=== PATIENT | male | born 1945 | race Caucasian/White ===

== ENCOUNTER 2017-02-09 09:46 | Emergency (ER) | payer OTHER, MEDICARE ==
--- NOTE | 2017-02-09 10:06 | CPEKG ---
Heart Rate: 48 RR Interval: 1250 P-R Interval: 148 QRSD Interval: 90 QT Interval: 420 QTC Interval: 376 P Garrard: 71 QRS Garrard: 53 T Wave Garrard: 54 EKG Severity - OTHERWISE NORMAL ECG - EKG Impression: SINUS BRADYCARDIA EKG Impression: ATRIAL PREMATURE COMPLEX Electronically Signed By: Essie Mane 09-Feb-2017 14:55:42
--- NOTE | 2017-02-09 10:16 | EDPHY ---
H & P Time Seen by Provider: 02/09/17 10:04 HPI/ROS: CHIEF COMPLAINT: Irregular heartbeat HISTORY OF PRESENT ILLNESS: This patient is a 71 year old male with history of atrial fibrillation complaining of irregular heartbeat onset Wednesday morning, 02/05/17. He is prescribed Pradaxa in case he notes he is in atrial fibrillation, so he began taking this medication Wednesday. He denies other recent changes in medications. He endorses recent stress, but is generally eating and drinking well. He has not eaten yet today, because he was concerned for the possibility of cardioversion. No chest pain, shortness of breath, nausea, headache, or other associated symptoms. REVIEW OF SYSTEMS: Constitutional: No fever, no chills Eyes: No visual changes ENT: No sore throat Respiratory: No cough, no shortness of breath Cardiac: No chest pain Gastrointestinal: No nausea, no vomiting, no abdominal pain Genitourinary: No hematuria, no dysuria Musculoskeletal: No leg pain or swelling Skin: No rash Neurological: No headache, no numbness, no weakness Psychiatric: No depression Past Medical/Surgical History: 1. Atrial fibrillation 2. Pre diabetes mellitus 3. Hernia repair 4. Appendectomy Social History: . Lives in [place]. Smoking Status: Never smoked Physical Exam: General Appearance: Alert, no distress Eyes: Pupils equal and round, no conjunctival pallor or injection ENT, Mouth: Mucous membranes moist Neck: Normal inspection Respiratory: Lungs are clear to auscultation Cardiovascular: Regular rate. Occasional premature beat. Gastrointestinal: Abdomen is soft and non- tender Neurological: A&O, nonfocal, normal gait Skin: Warm and dry, no rash Extremities: Nontender, no pedal edema Psychiatric: Mood and affect normal Constitutional: Initial Vital Signs Temperature (C) 36.4 C 02/09/17 09:49 Heart Rate 56 L 02/09/17 09:49 Respiratory Rate 17 02/09/17 09:49 Blood Pressure 131/79 H 02/09/17 09:49 O2 Sat (%) 94 02/09/17 09:49 O2 Delivery Mode Room Air Allergies/Adverse Reactions: No Known Allergies Allergy (Verified 02/09/17 09:48) Home Medications: Medication Instructions Recorded Aspirin [Aspirin 81mg (*)] 81 mg PO HS 05/06/15 Atenolol [Tenormin 25 mg (*)] 25 mg PO BID@19,21 05/06/15 Cholecalciferol Vit D3 [Vitamin D3 1,000 units PO BID 05/06/15 (*)] Diazepam [Valium 5 MG (*)] 5 mg PO DAILY PRN 05/06/15 Herbals/Supplements -Info Only 1 ea PO DAILY 05/06/15 [place]-3 Fatty Acids [Fish Oil 1000 1,000 mg PO BID 05/06/15 mg (*)] SIMVASTATIN 10 mg PO HS 05/06/15 Pradaxa 02/09/17 Medical Decision Making - Diagnostics EKG Interpretation: EKG interpreted by me reveals sinus bradycardia, rate 48, atrial premature complexes. Interpretation: atrial premature complexes. ED Course/Re-evaluation: This patient is a 71 year old male with history of atrial fibrillation presenting with four day history of irregular heartbeat. EKG reveals premature atrial contractions. Plan to check electrolyte levels. Labs unremarkable. Reassessed patient. Plan to discharge home in good condition. 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 Pollock, this week to discuss his PACs and medication regimen. The patient is comfortable with this plan. Differential Diagnosis: The differential for the patient's irregular heartbeat included but was not limited to sinus tachycardia, atrial fibrillation, premature atrial contractions , premature ventricular contractions, or ventricular tachycardia. - Data Points Laboratory Results: Laboratory Results 02/09/17 10:15 02/09/17 10:15 02/09/17 02/09/17 10:15 10:15 WBC 5.15 10^3/uL 10^3/uL (3.80-9.50) RBC 4.95 10^6/uL 10^6/uL (4.40-6.38) Hgb 17.0 g/dL g/dL (13.7-17.5) Hct 48.5 % % (40.0-51.0) MCV 98.0 fL fL (81.5-99.8) MCH 34.3 pg H pg (27.9-34.1) MCHC 35.1 g/dL g/dL (32.4-36.7) RDW 12.0 % % (11.5-15.2) Plt Count 164 10^3/uL 10^3/uL (150-400) MPV 11.5 fL fL (8.7-11.7) Neut % (Auto) 51.3 % % (39.3-74.2) Lymph % (Auto) 31.8 % % (15.0-45.0) [place] % (Auto) 12.2 % % (4.5-13.0) Eos % (Auto) 3.9 % % (0.6-7.6) Baso % (Auto) 0.6 % % (0.3-1.7) Nucleat RBC Rel Count 0.0 % % (0.0-0.2) Absolute Neuts (auto) 2.64 10^3/uL 10^3/uL (1.70-6.50) Absolute Lymphs (auto) 1.64 10^3/uL 10^3/uL (1.00-3.00) Absolute Monos (auto) 0.63 10^3/uL 10^3/uL (0.30-0.80) Absolute Eos (auto) 0.20 10^3/uL 10^3/uL (0.03-0.40) Absolute Basos (auto) 0.03 10^3/uL 10^3/uL (0.02-0.10) Absolute Nucleated RBC 0.00 10^3/uL 10^3/uL (0-0.01) Immature Gran % 0.2 % % (0.0-1.1) Immature Gran # 0.01 10^3/uL 10^3/uL (0.00-0.10) Sodium 142 mEq/L mEq/L (134-144) Potassium 4.2 mEq/L mEq/L (3.5-5.2) Chloride 109 mEq/L mEq/L (97-110) Carbon Dioxide 22 mEq/l mEq/l (22-31) Anion Gap 11 mEq/L mEq/L (8-16) BUN 22 mg/dL mg/dL (7-23) Creatinine 1.1 mg/dL mg/dL (0.7-1.3) Estimated GFR > 60 Glucose 108 mg/dL H mg/dL (70-100) Calcium 9.8 mg/dL mg/dL (8.5-10.4) Departure - Departure Disposition: Home, Routine, Self-Care Clinical Impression: Premature atrial beat Condition: Good Instructions: Premature Atrial Contractions (ED) Additional Instructions: 1. Follow up with Dr. Pollock in the next week to further evaluate your premature atrial contractions. 2. Return to the Emergency Department if you develop dizziness, chest pain, shortness of breath, or any other concerns . Referrals: Veronika Leach MD [Primary Care Provider] - As per Instructions Eamon Pollock MD [Medical Doctor] - As per Instructions Report Scribed for: Essie Mane Report Scribed by: Jennifer Solis Date of Report: 02/09/17 Time of Report: 10:13 Physician Review and Approval Statement: 02/09/17 10:13 Portions of this note were transcribed by a medical researcher. I personally performed a history, physical exam, medical decision making, and confirmed accuracy of information the transcribed note.
[2017-02-09 10:23] LABS: % IMMATURE GRANULYOCYTES 0.2 % (0.0-1.1); ABSOLUTE IMMATURE GRANULOCYTES 0.01 10^3/uL (0.00-0.10); ADD DIFF? NO; ADD MORPH? NO; ADD SCAN? NO; ATYPICAL LYMPHOCYTE FLAG 40 (0-99); FRAGMENT RBC FLAG 0 (0-99); HEMATOCRIT 48.5 % (40.0-51.0); LEFT SHIFT FLG 0 (0-99); LIPEMIA HEMOLYSIS FLAG 90 (0-99); MEAN CELL HEMOGLOBIN 34.3 pg (27.9-34.1); MEAN CELL HEMOGLOBIN CONCENTR. 35.1 g/dL (32.4-36.7); MEAN PLATELET VOLUME 11.5 fL (8.7-11.7); PLATELET CLUMPS FLAG 30 (0-99); PLATELET COUNT 164 10^3/uL (150-400); RED BLOOD CELL COUNT 4.95 10^6/uL (4.40-6.38)
[2017-02-09 10:38] LABS: ANION GAP 11 mEq/L (8-16); CALCIUM 9.8 mg/dL (8.5-10.4); CARBON DIOXIDE 22 mEq/l (22-31); CHLORIDE 109 mEq/L (97-110); CREATININE 1.1 mg/dL (0.7-1.3); GLOMERULAR FILTRATION RATE > 60; GLUCOSE 108 mg/dL (70-100); POTASSIUM 4.2 mEq/L (3.5-5.2); SODIUM 142 mEq/L (134-144)
[2017-02-09 11:10] VITALS: BP 107/68; PULSE 43; RESP 16; TEMP 97.9; O2SAT 92
== END 2017-02-09 11:09 | disposition home or self-care (01) ==
DX: I49.1 Atrial premature depolarization (principal); Z79.82 Long term (current) use of aspirin

== ENCOUNTER → 2017-04-23 | Outpatient (CLI) | payer OTHER, MEDICARE | LOC: FIMAGING 15:45 | PROVIDERS: ATTEND Internal Medicine | DX: R91.1 Solitary pulmonary nodule (principal); I25.10 Atherosclerotic heart disease of native coronary artery without angina pectoris ==

== ENCOUNTER → 2017-11-30 | Outpatient (CLI) | payer OTHER, MEDICARE | LOC: BHFA 13:45 | PROVIDERS: ATTEND Internal Medicine | DX: Z86.79 Personal history of other diseases of the circulatory system (principal); Z79.899 Other long term (current) drug therapy ==

== ENCOUNTER 2018-04-29 19:25 | Emergency (ER) | payer OTHER, MEDICARE ==
--- NOTE | 2018-04-29 19:48 | EDPHY ---
H & P Time Seen by Provider: 04/29/18 19:47 HPI/ROS: Chief complaint. Fluctuating blood pressure HPI. 72-year-old male presents with concerns about blood pressure. He felt somewhat lightheaded this afternoon and so took his blood pressure thinking it would be low. It was somewhat elevated. He is taking his blood pressure multiple times to the afternoon. The highest reading he had recorded was 159/ 83. He had no chest discomfort or shortness of breath. He does have a history of occasional AFib. He uses aspirin as a blood thinner. He has mild hypertension and uses bisoprolol for blood pressure control. He has been using his medication. Patient is concerned that his blood pressure seems to be going up and down as the numbers or different each time he takes his blood pressure. ROS 10 systems were reviewed and negative with the exception of the elements mentioned in the history of present illness Past Medical/Surgical History: Atrial fibrillation, appendectomy, hypertension, dyslipidemia Social History: , nonsmoker, no alcohol Smoking Status: Never smoked Physical Exam: General Appearance: Alert well-developed male mild distress vital signs are stable. Current blood pressure 137/68 Eyes: Pupils equal and round no pallor or injection. ENT, Mouth: Mucous membranes are moist. Respiratory: There are no retractions, lungs are clear to auscultation. Cardiovascular: Regular rate and rhythm. Gastrointestinal: Abdomen is soft and nontender, no masses, bowel sounds normal. Neurological: Awake and alert, sensory and motor exams grossly normal. Skin: Warm and dry, no rashes. Musculoskeletal: Neck is supple nontender. Extremities symmetrical, full range of motion. Psychiatric: Patient is oriented X 3, there is no agitation. Constitutional: Initial Vital Signs Temperature (C) 36.4 C 04/29/18 19:31 Heart Rate 61 04/29/18 19:31 Respiratory Rate 16 04/29/18 19:31 Blood Pressure 137/68 H 04/29/18 19:31 O2 Sat (%) 96 04/29/18 19:31 O2 Delivery Mode Room Air Allergies/Adverse Reactions: No Known Allergies Allergy (Verified 04/29/18 19:35) Home Medications: Medication Instructions Recorded Aspirin [Aspirin 81mg (*)] 81 mg PO HS 05/06/15 Diazepam [Valium 5 MG (*)] 5 mg PO DAILY PRN 05/06/15 SIMVASTATIN 10 mg PO HS 05/06/15 Medical Decision Making - Diagnostics EKG Interpretation: EKG interpreted by me shows normal sinus rhythm normal interval and axis. QRS is normal there is no significant ST elevation or depression. There is 1 Pac. Rate is 52 Procedures: IV normal saline, monitor ED Course/Re-evaluation: Re-evaluation at 9:15 a.m.. Patient and I discussed EKG and laboratory evaluation. We discussed treatment plan including criteria for return and importance of follow-up and further evaluation. He expresses understanding and agreement Differential Diagnosis: Mild blood pressure variation with normal workup. I considered hypertensive crisis and end-organ involvement - Data Points Laboratory Results: Laboratory Results 04/29/18 20:20 04/29/18 20:20 04/29/18 04/29/18 04/29/18 20:35 20:20 20:20 WBC 5.69 10^3/uL 10^3/uL (3.80-9.50) RBC 4.63 10^6/uL 10^6/uL (4.40-6.38) Hgb 15.9 g/dL g/dL (13.7-17.5) Hct 45.4 % % (40.0-51.0) MCV 98.1 fL fL (81.5-99.8) MCH 34.3 pg H pg (27.9-34.1) MCHC 35.0 g/dL g/dL (32.4-36.7) RDW 12.1 % % (11.5-15.2) Plt Count 164 10^3/uL 10^3/uL (150-400) MPV 10.9 fL fL (8.7-11.7) Neut % (Auto) 59.3 % % (39.3-74.2) Lymph % (Auto) 26.5 % % (15.0-45.0) [place] % (Auto) 11.1 % % (4.5-13.0) Eos % (Auto) 2.5 % % (0.6-7.6) Baso % (Auto) 0.4 % % (0.3-1.7) Nucleat RBC Rel Count 0.0 % % (0.0-0.2) Absolute Neuts (auto) 3.38 10^3/uL 10^3/uL (1.70-6.50) Absolute Lymphs (auto) 1.51 10^3/uL 10^3/uL (1.00-3.00) Absolute Monos (auto) 0.63 10^3/uL 10^3/uL (0.30-0.80) Absolute Eos (auto) 0.14 10^3/uL 10^3/uL (0.03-0.40) Absolute Basos (auto) 0.02 10^3/uL 10^3/uL (0.02-0.10) Absolute Nucleated RBC 0.00 10^3/uL 10^3/uL (0-0.01) Immature Gran % 0.2 % % (0.0-1.1) Immature Gran # 0.01 10^3/uL 10^3/uL (0.00-0.10) Sodium 138 mEq/L mEq/L (135-145) Potassium 4.2 mEq/L mEq/L (3.3-5.0) Chloride 106 mEq/L mEq/L (97-110) Carbon Dioxide 23 mEq/l mEq/l (22-31) Anion Gap 9 mEq/L mEq/L (8-16) BUN 28 mg/dL H mg/dL (7-23) Creatinine 0.9 mg/dL mg/dL (0.7-1.3) Estimated GFR > 60 Glucose 103 mg/dL H mg/dL (70-100) Calcium 9.4 mg/dL mg/dL (8.5-10.4) POC Troponin I 0.01 ng/mL ng/mL (0.00-0.08) Point of Care Test Results: Chemistry 04/29/18 20:35 POC Troponin I 0.01 ng/mL ng/mL (0.00-0.08) Departure - Departure Disposition: Home, Routine, Self-Care Clinical Impression: Hypertension Qualifiers: Hypertension type: essential hypertension Qualified Code(s): I10 - Essential ( primary) hypertension Condition: Good Instructions: Hypertension (ED) Additional Instructions: Continue regular medications. Return for worsening symptoms including lightheadedness, chest discomfort, trouble breathing. Follow-up with Dr. Carr for further discussion of blood pressure and possible blood pressure medication modification Referrals: Veronika Leach MD [Primary Care Provider] - 2-3 days, call for appt.
[2018-04-29 20:35] VITALS: BP 139/86
[2018-04-29 20:35] LABS: PLATELET COUNT 164 10^3/uL (150-400)
--- NOTE | 2018-04-29 21:33 | CPEKG ---
Test Reason : OPEN Blood Pressure : / mmHG Vent. Rate : 052 BPM Atrial Rate : 053 BPM P-R Int : 142 ms QRS Dur : 082 ms QT Int : 415 ms P-R-T Axes : 058 047 038 degrees QTc Int : 386 ms Sinus rhythm Atrial premature complex Abnormal R-wave progression, early transition Confirmed by Mg Bailey ([id number]) on 04/29/2018 9:32:41 PM Referred By: Confirmed By:Mg Baliey
== END 2018-04-29 21:29 | disposition home or self-care (01) ==
DX: I10 Essential (primary) hypertension (principal)
CPT/HCPCS: 84484-PO

== ENCOUNTER 2018-08-30 14:35 | Emergency (ER) | payer OTHER, MEDICARE ==
[2018-08-30] MEDS ORDERED: ONDANSETRON 4 MG/2 ML VIAL IVP ONE (15:49)
[2018-08-30] MEDS ORDERED: NS 1,000 ML IV ONE (15:49)
--- NOTE | 2018-08-30 15:51 | EDPHY ---
H & P Stated Complaint: irregular HR hx of afib Time Seen by Provider: 08/30/18 15:36 HPI/ROS: CHIEF COMPLAINT: Vomiting, recurrent atrial fibrillation after taking narcotic medication for dental pain HISTORY OF PRESENT ILLNESS: The patient presents to the ED after he has developed intractable vomiting after taking [place] earlier this morning. The patient is taking the medication for dental pain following a recent procedure. The patient has a history of paroxysmal atrial fibrillation and also went back into atrial fibrillation. The patient denies any acute chest pain. He denies any melena. He is not anticoagulated currently. The patient denies any fever, cough or congestion. The patient denies any additional acute complaints. REVIEW OF SYSTEMS: A comprehensive 10 point review of systems is otherwise negative aside from elements mentioned in the history of present illness. Source: Patient Exam Limitations: No limitations - Personal History Current Tetanus/Diphtheria Vaccine: Yes Current Tetanus Diphtheria and Acellular Pertussis (TDAP): Yes Tetanus Vaccine Date: < 10 years - Medical/Surgical History Hx Asthma: No Hx Chronic Respiratory Disease: No Hx Diabetes: No Hx Cardiac Disease: Yes Hx Renal Disease: No Hx Cirrhosis: No Hx Alcoholism: No Hx HIV/AIDS: No Hx Splenectomy or Spleen Trauma: No Other PMH: Afib, pre DM, hernia repair, appendectomy, pericarditis - Social History Smoking Status: Never smoked - Physical Exam Exam: General Appearance: Alert, no distress Eyes: Pupils equal and round no pallor or injection ENT, Mouth: Mucous membranes moist Respiratory: There are no retractions, lungs are clear to auscultation Cardiovascular: Tachycardic, irregular Gastrointestinal: Abdomen is soft and nontender, no masses, bowel sounds normal Neurological: A&O, normal motor function, normal sensory exam, normal cranial nerves Skin: Warm and dry, no rashes Musculoskeletal: Neck is supple nontender Extremities: symmetrical, full range of motion Constitutional: Initial Vital Signs Temperature (C) 36.4 C 08/30/18 15:07 Heart Rate 118 H 08/30/18 15:07 Respiratory Rate 16 08/30/18 15:07 Blood Pressure 117/73 08/30/18 15:07 O2 Sat (%) 96 08/30/18 15:07 O2 Delivery Mode Room Air Allergies/Adverse Reactions: acetaminophen [From Vicodin] Allergy (Verified 08/30/18 15:06) hydrocodone [From Vicodin] Allergy (Verified 08/30/18 15:06) Home Medications: Medication Instructions Recorded Aspirin [Aspirin 81mg (*)] 81 mg PO HS 05/06/15 Diazepam [Valium 5 MG (*)] 5 mg PO DAILY PRN 05/06/15 SIMVASTATIN 10 mg PO HS 05/06/15 Bisoprolol Fumarate 08/30/18 Pradaxa 08/30/18 Propafenone HCl 08/30/18 Medical Decision Making - Diagnostics EKG Interpretation: EKG: Complete interpretation has been separately recorded in the [employer] archive. Summary impression: Atrial fibrillation, rate 140, nonspecific ST T wave changes noted ED Course/Re-evaluation: The patient presents to the ED with side effects secondary to narcotic medications. The patient was noted to be in rapid atrial fibrillation when he arrived. The patient had an IV established. He received 2 L of normal saline and Zofran. The patient's laboratory studies are unremarkable. His troponin is normal. After receiving IV fluid rehydration is heart rate is now 90. The patient continues to be in atrial fibrillation but he plans to resume his anticoagulation. The patient would like to go home now that his symptoms have resolved. He will be provided a prescription for Zofran. Patient is advised to use Tylenol and ibuprofen as an initial first-line therapy for pain management. He is advised to return to the ED for markedly worsening symptoms or other concerns. Differential Diagnosis: Differential diagnosis considered includes atrial fibrillation, atrial flutter, dehydration, acute coronary syndrome, renal failure, medication side effect - Data Points Laboratory Results: Laboratory Results 08/30/18 16:08 08/30/18 15:45 08/30/18 08/30/18 08/30/18 16:08 16:08 15:45 WBC 7.35 10^3/uL 10^3/uL (3.80-9.50) RBC 4.82 10^6/uL 10^6/uL (4.40-6.38) Hgb 16.1 g/dL g/dL (13.7-17.5) Hct 48.2 % % (40.0-51.0) MCV 100.0 fL H fL (81.5-99.8) MCH 33.4 pg pg (27.9-34.1) MCHC 33.4 g/dL g/dL (32.4-36.7) RDW 12.0 % % (11.5-15.2) Plt Count 180 10^3/uL 10^3/uL (150-400) MPV 11.3 fL fL (8.7-11.7) Neut % (Auto) 87.6 % H % (39.3-74.2) Lymph % (Auto) 8.4 % L % (15.0-45.0) [place] % (Auto) 3.8 % L % (4.5-13.0) Eos % (Auto) 0.0 % L % (0.6-7.6) Baso % (Auto) 0.1 % L % (0.3-1.7) Nucleat RBC Rel Count 0.0 % % (0.0-0.2) Absolute Neuts (auto) 6.43 10^3/uL 10^3/uL (1.70-6.50) Absolute Lymphs (auto) 0.62 10^3/uL L 10^3/uL (1.00-3.00) Absolute Monos (auto) 0.28 10^3/uL L 10^3/uL (0.30-0.80) Absolute Eos (auto) 0.00 10^3/uL L 10^3/uL (0.03-0.40) Absolute Basos (auto) 0.01 10^3/uL L 10^3/uL (0.02-0.10) Absolute Nucleated RBC 0.00 10^3/uL 10^3/uL (0-0.01) Immature Gran % 0.1 % % (0.0-1.1) Immature Gran # 0.01 10^3/uL 10^3/uL (0.00-0.10) Sodium 139 mEq/L mEq/L (135-145) Potassium 4.4 mEq/L mEq/L (3.5-5.2) Chloride 104 mEq/L mEq/L (97-110) Carbon Dioxide 24 mEq/l mEq/l (22-31) Anion Gap 11 mEq/L mEq/L (6-14) BUN 23 mg/dL mg/dL (7-23) Creatinine 1.0 mg/dL mg/dL (0.7-1.3) Estimated GFR > 60 Glucose 169 mg/dL H mg/dL (70-100) Calcium 9.5 mg/dL mg/dL (8.5-10.4) POC Troponin I 0.01 ng/mL ng/mL (0.00-0.08) Lipase 130 IU/L IU/L (23-300) Medications Given: Discontinued Medications Sodium Chloride (Ns) 1,000 mls @ 0 mls/hr IV EDNOW ONE; Wide Open PRN Reason: Protocol Stop: 08/30/18 15:50 Last Admin: 08/30/18 15:57 Dose: 1,000 mls Ondansetron HCl (Zofran) 4 mg IVP EDNOW ONE Stop: 08/30/18 15:50 Last Admin: 08/30/18 15:58 Dose: 4 mg Point of Care Test Results: Chemistry 08/30/18 16:08 POC Troponin I 0.01 ng/mL ng/mL (0.00-0.08) Departure - Departure Disposition: Home, Routine, Self-Care Clinical Impression: Vomiting, Atrial fibrillation, Dehydration Condition: Good Instructions: Acute Nausea and Vomiting (ED) Additional Instructions: 1. Follow up with your career development coordinator/teacher for a recheck of your atrial fibrillation within the next week. 2. I recommend Tylenol and ibuprofen for first-line agents for pain control. 3. Zofran as needed for nausea and vomiting. 4. Please return to the ED for any markedly worsening symptoms or other concerns. Referrals: Veronika Leach MD [Primary Care Provider] - As per Instructions
--- NOTE | 2018-08-30 16:19 | CPEKG ---
Test Reason : OPEN Blood Pressure : / mmHG Vent. Rate : 140 BPM Atrial Rate : 114 BPM P-R Int : 179 ms QRS Dur : 078 ms QT Int : 282 ms P-R-T Axes : 000 062 -85 degrees QTc Int : 431 ms Atrial fibrillation Abnormal R-wave progression, early transition Repolarization abnormality, prob rate related Confirmed by Ugo Ley ([id number]) on 08/30/2018 4:19:10 PM Referred By: Ugo Ley Confirmed By:Ugo Ley
[2018-08-30 16:31] LABS: PLATELET COUNT 180 10^3/uL (150-400)
[2018-08-30 17:29] VITALS: BP 112/69
== END 2018-08-30 17:51 | disposition home or self-care (01) ==
DX: R11.10 Vomiting, unspecified (principal); I48.91 Unspecified atrial fibrillation; E86.0 Dehydration
CPT/HCPCS: 93005; 96361; 96374; 99284; J2405; 84484-ER

== ENCOUNTER 2018-12-20 09:19 | Observation (INO) | payer OTHER ==
[2018-12-20] MEDS ORDERED: ASPIRIN 81 MG CHEWABLE TAB PO ONE (09:29)
[2018-12-20] MEDS ORDERED: NITROGLYCERIN 0.4 MG BTL SL ONE (09:42)
[2018-12-20] MEDS ORDERED: NS 500 ML IV ONE (09:44)
[2018-12-20 09:45] LABS: PLATELET COUNT 169 10^3/uL (150-400)
[2018-12-20] MEDS: NITROGLYCERIN 0.4 MG BTL SL PRN ×2 (09:45→09:55)
--- NOTE | 2018-12-20 09:52 | EDPHY ---
H & P Time Seen by Provider: 12/20/18 09:29 HPI/ROS: HPI Chest discomfort. 73-year-old male by private vehicle. This patient reports that he woke up at 7: 30 a.m. With a sensation of tightness and aching in his mid lower substernal area. Some radiation up into the anterior aspect of his neck. He currently rates his discomfort as a 4/10. He denies any shortness of breath at rest but states that he has a sensation that he cannot take a full breath without more discomfort. He does have a prior history of paroxysmal atrial fibrillation as well as pericarditis. He states that this is pain is different from his pericarditis pain which was much more intense and sharp. He denies any palpitations. His oncology nurse was Dr. Pollock with [facility] but he has retired. ROS: Constitutional: No fever, no chills. No weakness. Eyes: No discharge. No changes in vision. ENT: No sore throat. No nasal congestion or rhinorrhea. Respiratory: No cough. As above. Cardiac: As above, no palpitations. Gastrointestinal: No abdominal pain, no vomiting, no diarrhea. Genitourinary: No hematuria. No dysuria or increased frequency with urination. Musculoskeletal: No back pain. No neck pain. No myalgias or arthralgias. Skin: No rashes. Neurological: No headache. No focal weakness or altered sensation. Past medical history: Admission for chest pain thought to be pericarditis as well as paroxysmal atrial fibrillation in 2016. Echocardiogram in 2016 showed an ejection fraction of 60% no regional wall motion abnormality noted. No aortic insufficiency or stenosis. There was no evidence of pericardial effusion at that time as well. Hernia repair, appendectomy, hyperlipidemia. As above. Social history: Currently here by himself. Nonsmoker. No alcohol. Physical Exam: General Appearance: Alert, no distress. This patient is responding to questions appropriately and in full sentences. This patient appears well- hydrated and well-nourished. Eyes: Pupils equal and round no pallor or injection. No lid edema, erythema or injection. Respiratory: There are no retractions, lungs are clear to auscultation with good air movement bilaterally. Cardiovascular: Regular rate and rhythm. No murmur. Gastrointestinal: Abdomen is soft and nontender, no masses, bowel sounds normal. No focal tenderness at McBurney's point. No Miramontes sign. Neurological: Motor sensory function is grossly intact. Cranial nerves are normal. Gait is normal. Skin: Warm and dry, no rashes. Musculoskeletal: Neck is supple and nontender. Extremities are symmetrical. All joints range without pain or impingement. Psychiatric: No agitation. No depression. Database: EKG: EKG time is 9:31 a.m.; EKG shows a narrow complex normal sinus rhythm with a ventricular rate of 70. The [place], QRS, QT intervals are within normal limits. There are no ST-T wave changes indicative of ischemic or injury pattern. No evidence of right heart strain. Interpreted by me. Imaging: Chest x-ray AP portable: The cardiac mediastinal silhouette is unremarkable. No evidence of infiltrate or pneumothorax. No acute cardiopulmonary disease process noted. Interpreted by me. Procedures: Emergency department course: Triage vital signs reviewed. He is moderately hypertensive with an initial blood pressure of 151/89. Vital signs are otherwise normal. IV was placed. He was placed on a ekg monitor tech. EKG obtained and reviewed by myself. He was given 324 mg of chewed aspirin. He will be given sublingual nitroglycerin at 0.4 mg initially with a 250 cc IV normal saline fluid bolus. Based on his reaction to this medication will determine further therapy. I explained to him that his story was concerning and that I would likely admit him to the hospital for further workup and evaluation. He endorses. 9:55 a.m., no relief with 1 sublingual nitroglycerin. Blood pressure down to 118/79. He will be given an additional sublingual nitroglycerin 0.4 mg. If no relief will consider low-dose morphine verses fentanyl. Initial troponin 0.00. 10:30 a.m., the patient was re-evaluated, he is resting comfortably at this time. He has had 15 mcg of IV fentanyl and a GI cocktail. He states that he feels better after the fentanyl was given. He declines any further pain medication. Results of his emergency department workup were reviewed with him. Plan for admission discussed. He endorses. Hospitalist paged. 10:35 a.m., spoke with on-call hospitalist, case discussed in detail. Patient accepted for admission to telemetry under the care of the hospitalist service. Cardiology consultation deferred to hospitalist. The patient's remaining emergency department course under my care has been uneventful. He was admitted in stable condition. Differential Diagnosis: The differential diagnosis on this patient includes but is not limited to acute coronary syndrome, GERD, pericarditis. Pulmonary embolism, aortic dissection unlikely. This represents a partial list of diagnoses considered. These considerations are based on history, physical exam, past history, reassessment and diagnostic testing. Smoking Status: Never smoked Constitutional: Initial Vital Signs Temperature (C) 36.5 C 12/20/18 09:22 Heart Rate 70 12/20/18 09:22 Respiratory Rate 20 12/20/18 09:22 Blood Pressure 151/89 H 12/20/18 09:22 O2 Sat (%) 95 12/20/18 09:22 O2 Delivery Mode Room Air Allergies/Adverse Reactions: acetaminophen [From Vicodin] Allergy (Verified 12/20/18 09:25) hydrocodone [From Vicodin] Allergy (Verified 12/20/18 09:25) Home Medications: Medication Instructions Recorded Aspirin [Aspirin 81mg (*)] 81 mg PO HS 05/06/15 Diazepam [Valium 5 MG (*)] 5 mg PO DAILY PRN 05/06/15 SIMVASTATIN 10 mg PO HS 05/06/15 Bisoprolol Fumarate 08/30/18 Ondansetron Odt [Zofran Odt] 4 mg PO Q4PRN PRN #20 tab 08/30/18 Pradaxa 08/30/18 Propafenone HCl 08/30/18 Medical Decision Making - Data Points Laboratory Results: Laboratory Results 12/20/18 09:35 12/20/18 09:35 12/20/18 12/20/18 12/20/18 09:36 09:35 09:35 WBC RBC Hgb Hct MCV MCH MCHC RDW Plt Count MPV Neut % (Auto) Lymph % (Auto) [place] % (Auto) Eos % (Auto) Baso % (Auto) Nucleat RBC Rel Count Absolute Neuts (auto) Absolute Lymphs (auto) Absolute Monos (auto) Absolute Eos (auto) Absolute Basos (auto) Absolute Nucleated RBC Immature Gran % Immature Gran # PT 12.9 SEC SEC (12.0-15.0) INR 1.01 (0.83-1.16) APTT 45.7 SEC H SEC (23.0-38.0) Sodium 141 mEq/L mEq/L (135-145) Potassium 3.8 mEq/L mEq/L (3.5-5.2) Chloride 103 mEq/L mEq/L (97-110) Carbon Dioxide 27 mEq/l mEq/l (22-31) Anion Gap 11 mEq/L mEq/L (6-14) BUN 20 mg/dL mg/dL (7-23) Creatinine 1.0 mg/dL mg/dL (0.7-1.3) Estimated GFR > 60 Glucose 123 mg/dL H mg/dL (70-100) Calcium 9.6 mg/dL mg/dL (8.5-10.4) POC Troponin I 0.00 ng/mL ng/mL (0.00-0.08) NT-Pro-B Natriuret Pep 127 pg/mL H pg/mL (0-125) 12/20/18 09:35 WBC 9.03 10^3/uL 10^3/uL (3.80-9.50) RBC 4.87 10^6/uL 10^6/uL (4.40-6.38) Hgb 16.9 g/dL g/dL (13.7-17.5) Hct 48.4 % % (40.0-51.0) MCV 99.4 fL fL (81.5-99.8) MCH 34.7 pg H pg (27.9-34.1) MCHC 34.9 g/dL g/dL (32.4-36.7) RDW 12.1 % % (11.5-15.2) Plt Count 169 10^3/uL 10^3/uL (150-400) MPV 11.3 fL fL (8.7-11.7) Neut % (Auto) 65.3 % % (39.3-74.2) Lymph % (Auto) 22.3 % % (15.0-45.0) [place] % (Auto) 9.5 % % (4.5-13.0) Eos % (Auto) 2.4 % % (0.6-7.6) Baso % (Auto) 0.2 % L % (0.3-1.7) Nucleat RBC Rel Count 0.0 % % (0.0-0.2) Absolute Neuts (auto) 5.89 10^3/uL 10^3/uL (1.70-6.50) Absolute Lymphs (auto) 2.01 10^3/uL 10^3/uL (1.00-3.00) Absolute Monos (auto) 0.86 10^3/uL H 10^3/uL (0.30-0.80) Absolute Eos (auto) 0.22 10^3/uL 10^3/uL (0.03-0.40) Absolute Basos (auto) 0.02 10^3/uL 10^3/uL (0.02-0.10) Absolute Nucleated RBC 0.00 10^3/uL 10^3/uL (0-0.01) Immature Gran % 0.3 % % (0.0-1.1) Immature Gran # 0.03 10^3/uL 10^3/uL (0.00-0.10) PT INR APTT Sodium Potassium Chloride Carbon Dioxide Anion Gap BUN Creatinine Estimated GFR Glucose Calcium POC Troponin I NT-Pro-B Natriuret Pep Medications Given: Nitroglycerin (Nitrostat) 0.4 mg SL Q5M PRN PRN Reason: Chest Pain Last Admin: 12/20/18 09:55 Dose: 0.4 mg Discontinued Medications Al Hydroxide/Mg Hydroxide (Maalox Susp) 30 ml PO ONCE ONE Stop: 12/20/18 10:04 Last Admin: 12/20/18 10:15 Dose: 30 ml Aspirin (Aspirin) 324 mg PO EDNOW ONE Stop: 12/20/18 09:30 Last Admin: 12/20/18 09:40 Dose: 324 mg Fentanyl (Sublimaze) 15 mcg IVP EDNOW ONE Stop: 12/20/18 10:04 Last Admin: 12/20/18 10:15 Dose: 15 mcg Hyoscyamine Sulfate (Levsin, Hyomax-Sl) 0.25 mg PO ONCE ONE Stop: 12/20/18 10:04 Last Admin: 12/20/18 10:15 Dose: 0.25 mg Sodium Chloride (Ns) 500 mls @ 1,000 mls/hr IV EDNOW ONE PRN Reason: Protocol Stop: 12/20/18 10:13 Last Admin: 12/20/18 09:45 Dose: 500 mls Lidocaine (Lidocaine 2% Viscous) 15 ml PO ONCE ONE Stop: 12/20/18 10:04 Last Admin: 12/20/18 10:15 Dose: 15 ml Point of Care Test Results: Chemistry 12/20/18 09:36 POC Troponin I 0.00 ng/mL ng/mL (0.00-0.08) Departure - Departure Disposition: [facility] Inpatient Acute Clinical Impression: Chest pain Referrals: Veronika Leach MD [Primary Care Provider] - As per Instructions
[2018-12-20 10:01] LABS: INR 1.01 (0.83-1.16); PROTIME(PATIENT) 12.9 SEC (12.0-15.0)
[2018-12-20] MEDS ORDERED: MAG HYDROX/AL HYDROX/SIMETH 30 ML UDCUP PO ONE (10:03)
[2018-12-20] MEDS ORDERED: fentaNYL 100 MCG/2 ML INJ IVP ONE (10:03)
[2018-12-20] MEDS ORDERED: HYOSCYAMINE SULFATE 0.125 MG TAB PO ONE (10:03)
[2018-12-20] MEDS ORDERED: LIDOCAINE 2% VISCOUS 15 ML UDCUP PO ONE (10:03)
--- NOTE | 2018-12-20 11:28 | PDGENHP ---
History and Physical History and Physical: CC: chest pain HISTORY: woke this am with substernal chest pain, severe, that has persisted but diminished greatly in severity. describes low substernal pressure that gradually moved to upper sternum, with high intensity that lasted approx 40 mins , then resolved to a mild discomfort which is still present. The location and pressure type sensation are typical anginal sxs. He has however also had a different component to the pain which is pleuritic, in the same area. No cough , sob, leg pain, swelling, nausea, diaphroesis. No hx of CAD, but one episode of pericarditis without complications. Notably, he says he injured a knee 10 days ago and has stopped exercising since then due to that, unclear that he would be able to do treadmill stress testing successfully Risk factors: age, HTN, hyperlipidemia, no diabetes or family hx early cad not a smoker ROS: A comprehensive 10 system review revealed no other significant findings PAST MEDICAL HISTORY: Pericarditis, uncomplicated Paroxysmal atrial fibrillation HTN hyperlipidemia Appendectomy Hernia repairs FAMILY MEDICAL HISTORY: Colon cancer Alzheimer type dementia SOCIAL HISTORY: No tobacco No alcohol lives with his MEDICATIONS: The patients list has been reconciled by our clinical pharmacist in the EMR. I have reviewed the list and ordered appropriate medicines. 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: Examination: General: alert, oriented, good mentation, relaxed Skin: warm, dry, good color, no rash HEENT: normal Neck: no mass or jvd Resps: relaxed Lungs: clear breath sounds Heart: regular, no murmur, no friction rub Chest: there is a very tiny area of tenderness midsternum, no other rib cage tenderness Abdomen: soft, nondistended, nontender, +BS, no mass Upper Extremities: normal Lower Extremities: no edema, warm No Bleeding or bruising Neurologic: normal speech/language, normal shellacker, no focal weakness IV site: looks normal LABORATORY DATA: 1st troponin negative Unremarkable basic met panel except for minimally elevated blood glucose BNP 127 RADIOLOGY STUDIES: I reviewed chest x-ray image from the ER which shows no acute abnormalities 12 LEAD EKG: I reviewed tracing from ER study, shows sinus rhythm with no acute ST elevation , some nonspecific T-wave abnormality, nothing that looks like pericarditis ASSESSMENT: * Chest pain -(heart score 5: age, 2 risk factors, moderate story, nonspecific ekg) Overall with his risk factors and substernal pressure it is reasonable to observe on card monitor and consider stress test in AM Given the pleuritic component, he could have a costochondritis or an episode of repeat pericarditis (no ekg change or rub to suggest that at present). My clinical suspicion for PE is low. PLANS: * chest pain protocol with troponins, ekg, stress (lexiscan due to recent knee injury) * celebrex now for pleuritic component * watch ekg for signs of develping recurrent pericarditis I have reviewed the patient's case in detail with . I have reviewed the patient's past medical records as part of this assessment, including previous hosp admission records
[2018-12-20] MEDS ORDERED: ONDANSETRON 4 MG/2 ML VIAL IVP PRN (11:32)
[2018-12-20] MEDS ORDERED: ACETAMINOPHEN 325 MG TAB PO PRN (11:32)
--- NOTE | 2018-12-20 15:26 | CPEKG ---
Test Reason : OPEN Blood Pressure : / mmHG Vent. Rate : 070 BPM Atrial Rate : 070 BPM P-R Int : 140 ms QRS Dur : 089 ms QT Int : 377 ms P-R-T Axes : 065 054 042 degrees QTc Int : 407 ms Sinus rhythm Confirmed by Jaquelin Matias ([id number]) on 12/20/2018 3:25:36 PM Referred By: Jaquelin Matias Confirmed By:Jaquelin Matias
[2018-12-20] MEDS ORDERED: PROPAFENONE HCL 150 MG TAB PO PRN (15:41)
[2018-12-20] MEDS ORDERED: DIAZEPAM 5 MG TAB PO PRN (15:41)
[2018-12-20] MEDS ORDERED: diphenhydrAMINE 25 MG CAP PO PRN (17:31)
[2018-12-20] MEDS ORDERED: MELATONIN 3 MG TAB PO SCH (21:00)
[2018-12-20] MEDS ORDERED: ASPIRIN 81 MG CHEWABLE TAB PO SCH (21:00)
[2018-12-20] MEDS ORDERED: PRAVASTATIN SODIUM 20 MG TAB PO SCH (21:00)
[2018-12-20] MEDS ORDERED: BISOPROLOL FUMARATE 5 MG TAB PO SCH (21:00)
[2018-12-20] MEDS: OMEGA-3 FATTY ACIDS 1,000 MG CAP PO SCH (22:14)
[2018-12-21] MEDS ORDERED: CHOLECALCIFEROL VIT D3 1,000 UNITS TAB PO SCH (09:00)
[2018-12-21] MEDS ORDERED: REGADENOSON 0.4 MG/5 ML SYR IVP ONE (09:07)
[2018-12-21] MEDS: OMEGA-3 FATTY ACIDS 1,000 MG CAP PO SCH (10:49)
[2018-12-21 11:14] VITALS: BP 124/79
--- NOTE | 2018-12-21 11:31 | CPR ---
[f rep st] NONINVASIVE CARDIAC PROCEDURE REPORT DATE OF PROCEDURE: 12/21/2018 PROCEDURE: Lexiscan nuclear stress test. ORDERING PHYSICIAN: Dr. Pramod Urbina. REASON FOR TEST: Chest pain. Resting EKG shows a regular sinus rhythm with an abnormal R-wave progression, mild [address] elevation, resting blood pressure 104/72, resting heart rate 64, oxygen saturation 94%. STRESS PORTION: Lexiscan nuclear stress test. Lexiscan was injected followed by saline flush. Cardiolite was then injected followed by saline flus h. His blood pressure peaked at 116/64, heart rate peak 92, oxygen saturation 96%. His only symptom was flushing. There were no significant EKG changes. One PVC was noted. RECOVERY: He did spontaneously recover. Resting blood pressure 108/70, resting heart rate 89 and re gular, oxygen saturation 97%. The flushing did dissipate during the recovery period. He did have ca ffeine during this time. Symptoms of flushing completely went away. There were no EKG changes franklin kirk recovery. At this time, he currently is stable for nuclear imaging. /[id number]/MODL
--- NOTE | 2018-12-21 14:23 | PDDCSUM ---
Discharge Summary Discharge Summary: This is a 73 yo male who was admitted with chest pain. He had negative work up including negative trops, telemetry, EKG, and Aileen scan. He had resolution of his chest pain and does not have any on discharge. There is no SOB. He is a non smoker. DDx: #Atypical chest pain Exam: NAD AAOX3 RRR CTA B S/NT/ND MEDS: SEE MED REC TOTAL TIME SPENT ON D/C IS 35 MINS
--- NOTE | 2018-12-21 16:28 | ASDISCHSUM ---
Discharge Information Plan Status:Home with No Needs Medically Cleared to Leave:12/21/2018 Discharge Date:12/21/2018 CM D/C Disposition:Home, Routine, Self-Care ADT D/C Disposition:Home, Routine, Self-Care Projected Discharge Date:12/21/2018 Transportation at D/C: Discharge Delay Reason: Follow-Up Date:12/21/2018 Discharge Slot: Final Diagnosis: Placement Information Patient Contact Information Contact Name:JULIOCESAR Relationship: Address:[address] [place] [address] City:[place] Alternate Phone: [facility]/Zip Code:[place] [address] Email: Financial Information Financial Class:Medicare Advantage Plans Primary Plan Desc:[employer] MEDICARE COMPLETE Primary Plan Number:[id number] Secondary Plan Desc: Secondary Plan Number: Assessment Information LACE LACE Length of stay for Answers: 1 day current admission Acuity / Level of Answers: No Care: Did the patient have an inpatient admission? Comorbidities - select Answers: Other Notes: AFib; HLD all that apply # of Emergency department Answers: 1-2 visits in the last 6 months Score: 3 Date Signed: 12/21/2018 04:27 PM Electronically Signed By:Hannah Montalvo RN Intervention Information
== END 2018-12-21 16:54 | disposition home or self-care (01) ==
LOC: F2W 12:46
PROVIDERS: ADMIT Internal Medicine; ATTEND Internal Medicine
DX: R07.89 Other chest pain (principal); E78.5 Hyperlipidemia, unspecified; I10 Essential (primary) hypertension
CPT/HCPCS: 71045; 78452; 93005; 93017; 96374; 99285; A9500; G0378; J2785; J3010; 84484-ER